=== PATIENT | male | born 2000 | race Caucasian/White ===

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

== ENCOUNTER 2022-03-18 07:45 | Inpatient (IN) | payer OTHER ==
[2022-03-21] MEDS ORDERED: AMOX500 PO (14:56)
[2022-03-21] MEDS ORDERED: PANT20 PO (14:56)
== END 2022-03-21 15:20 | disposition home or self-care (01) | DRG 377 ==
DX: K25.0 Acute gastric ulcer with hemorrhage (principal); R57.8 Other shock; D62 Acute posthemorrhagic anemia; I47.1 Supraventricular tachycardia; K92.0 Hematemesis; K04.7 Periapical abscess without sinus; K92.1 Melena; E87.6 Hypokalemia; F17.210 Nicotine dependence, cigarettes, uncomplicated; F12.10 Cannabis abuse, uncomplicated; R79.89 Other specified abnormal findings of blood chemistry

== ENCOUNTER 2023-04-04 12:03 | Emergency (ER) | payer OTHER ==
[~2023-04-04] VITALS: Ht 182.9 cm; Wt 72.6 kg
[~2023-04-04 12:03] MED LIST changes: +AMOX500 PO; +PANT20 PO
[2023-04-04 12:36] VITALS: BP 124/88
== END 2023-04-04 12:44 | disposition home or self-care (01) ==
LOC: ER 12:03
DX: S16.1XXA Strain of muscle, fascia and tendon at neck level, initial encounter (principal); F17.200 Nicotine dependence, unspecified, uncomplicated; W20.8XXA Other cause of strike by thrown, projected or falling object, initial encounter; Y93.89 Activity, other specified
CPT/HCPCS: 99283